=== PATIENT | female | born 1985 | race Caucasian/White ===

== ENCOUNTER 2019-04-06 06:04 | Day surgery (SDC) | payer BC ==
[~2019-04-06 06:04] MED LIST: Albuterol 0.083% 2.5 MG/3 ML Neb Soln NEB ONE; Albuterol 0.083% 2.5 MG/3 ML Neb Soln NEB SCH; Lidocaine 1%/Sod Bicarbonate in NS 8.4% 1 ML Syringe IDERM PRN; Sodium Chloride 0.9% 10 ML Syringe FLUSH PRN
[2019-04-06] MEDS ORDERED: Bupivacaine 0.25% 10 ML SDV ONE (06:48)
--- NOTE | 2019-04-06 06:56 | PCM.PREANE ---
Preanesthetic Assessment - Anesthesia/Transfusion/Family Hx Anesthesia History: Prior Anesthesia Without Reaction Family History of Anesthesia Reaction: No Transfusion History: No Prior Transfusion(s) - Review of Systems General: No Symptoms Pulmonary: No Symptoms Cardiovascular: No Symptoms Gastrointestinal: No Symptoms Neurological: No Symptoms Other: Reports: Diabetes (gluco check 191) - Physical Assessment NPO Status Date: 04/05/19 NPO Status Time: 00:00 Vital Signs: Last Vital Signs Temp 36.4 C 04/06/19 06:10 Pulse 78 04/06/19 06:10 Resp 16 04/06/19 06:10 BP 117/94 H 04/06/19 06:10 Pulse Ox 96 04/06/19 06:10 Height: 1.7 m Weight: 110.404 kg ASA Class: 2 Mental Status: Alert & Oriented x3 Airway Class: Mallampati = 2 Dentition: Reports: Normal Dentition Thyro-Mental Finger Breadths: 3 Mouth Opening Finger Breadths: 3 ROM/Head Extension: Full Lungs: Clear to Auscultation, Normal Respiratory Effort Cardiovascular: Regular Rate, Regular Rhythm - Lab Values: Laboratory Last Values POC Glucose 191 mg/dL (70-105) H 04/06/19 06:21 - Allergies Allergies/Adverse Reactions: Allergies Allergy/AdvReac Type Severity Reaction Status Date / Time tramadol Allergy Seizure Verified 04/05/19 12:43 - Blood Blood Available: No Product(s) Available: None - Anesthesia Plan Pre-Op Medication Ordered: None - Acknowledgements Anesthesia Type Planned: Spinal Pt an Appropriate Candidate for the Planned Anesthesia: Yes Alternatives and Risks of Anesthesia Discussed w Pt/Guardian: Yes Pt/Guardian Understands and Agrees with Anesthesia Plan: Yes PreAnesthesia Questionnaire HEENT History: Reports: Other (See Below) Other HEENT History: right middle ear effusion Cardiovascular History: Reports: None Respiratory History: Reports: Asthma Gastrointestinal History: Reports: Hemorrhoids Genitourinary History: Reports: None QC CHEMIST History: Reports: Endometriosis, Other (See Below) Other OB/BYN History: post menopausal, vaginal atrophy Musculoskeletal History: Reports: Other (See Below) Other Musculoskeletal History: bilateral trochanteric bursitis Neurological History: Reports: Cerebral Aneurysms (2003), Migraines, Neuropathy , Diabetic, Seizure Other Neuro History: CVD Psychiatric History: Reports: None Endocrine/Metabolic History: Reports: Diabetes, Type II, Obesity/BMI 30+ Hematologic History: Reports: None Immunologic History: Reports: None Oncologic (Cancer) History: Reports: None Dermatologic History: Reports: Other (See Below) Other Dermatologic History: dysplastic nevi of trunk, skin rash, skin lesion to scalp - Past Surgical History Head Surgeries/Procedures: Reports: None HEENT Surgical History: Reports: None Cardiovascular Surgical History: Reports: None Respiratory Surgical History: Reports: None GI Surgical History: Reports: Cholecystectomy Female Surgical History: Reports: Hysterectomy Male Surgical History: Reports: None Endocrine Surgical History: Reports: None Neurological Surgical History: Reports: None Musculoskeletal Surgical History: Reports: None Oncologic Surgical History: Reports: None Dermatological Surgical History: Reports: None - SUBSTANCE USE Smoking Status *Q: Current Every Day Smoker Recreational Drug Use History: No - HOME MEDS Home Medications: Home Meds Acetaminophen [Tylenol] 650 mg PO Q4H PRN 04/05/19 [History] Albuterol [Proventil HFA] 1 - 2 puff INH Q4H PRN 04/05/19 [History] Budesonide/Formoterol [Symbicort 160-4.5 MCG] 2 puff INH DAILY PRN 04/05/19 [ History] Estrogens, Conjugated [Premarin Vaginal Crm] 2 - 3 dose VAG Q96H PRN 04/05/19 [ History] Hydrocortisone [Preparation H] 1 dose TOP ASDIRECTED 04/05/19 [History] Liraglutide [Victoza] 1.2 ml SQ QAM 04/05/19 [History] metFORMIN HCl [Metformin HCl ER] 1,000 mg PO QPM 04/05/19 [History] Acetaminophen/HYDROcodone [[place] 325-5 MG] 1 - 2 tab PO Q6H PRN #40 tablet 04/06 [Rx] Aspirin 325 mg PO BID #84 tab 04/06/19 [Rx] Cyclobenzaprine [Flexeril] 10 mg PO Q8H PRN #40 tab 04/06/19 [Rx] - CURRENT (IN HOUSE) MEDS Current Meds: Current Medications Albuterol (Proventil Neb Soln) 2.5 mg NEB ONETIME YAMILKA Stop: 04/06/19 16:00 Epinephrine HCl (Adrenalin) 3 mg .XX ONETIME YAMILKA Stop: 04/06/19 23:00 Lactated Ringer's (Ringers, Lactated) 1,000 mls @ 125 mls/hr IV ASDIRECTED YAMILKA Lidocaine/Sodium Bicarbonate (Buffered Lidocaine 1% In Ns 8.4%) 0.25 ml IDERM ONETIME PRN PRN Reason: Prior to IV Start Sodium Chloride (Saline Flush) 10 ml FLUSH ASDIRECTED PRN PRN Reason: Keep Vein Open Discontinued Medications Albuterol (Proventil Neb Soln) 2.5 mg NEB ONETIME ONE Stop: 04/06/19 00:02 Albuterol (Proventil Neb Soln) 2.5 mg NEB ONETIME YAMILKA Stop: 04/06/19 16:00 Bupivacaine HCl (Sensorcaine-Mpf 0.25%) Confirm Administered Dose 30 ml .ROUTE .STK-MED ONE Stop: 04/06/19 06:49
[2019-04-06] MEDS ORDERED: EPINEPHrine 1 MG/ML 30 ML MDV SCH ×3 (07:00→07:30)
[2019-04-06] MEDS ORDERED: Propofol 200 MG/20 ML SDV ONE ×8 (07:01→09:44)
[2019-04-06] MEDS ORDERED: fentaNYL 100 MCG/2 ML SDV ONE ×2 (07:01→09:49)
[2019-04-06] MEDS ORDERED: Ondansetron 4 MG/2 ML SDV ONE (07:01)
[2019-04-06] MEDS ORDERED: Lidocaine 1% 4 ML ONE (07:02)
[2019-04-06] MEDS ORDERED: Midazolam 1 MG/ML 2 ML SDV ONE (07:02)
[2019-04-06] MEDS ORDERED: ceFAZolin 1 GM Vial ONE (07:04)
[2019-04-06] MEDS: Lactated Ringers 1,000 ML IV SCH ×2 (07:05→11:47)
[2019-04-06] MEDS ORDERED: ePHEDrine/Normal Saline 25 MG/5 ML Syringe ONE ×2 (07:43→08:05)
[2019-04-06] MEDS ORDERED: Lactated Ringers 1,000 ML ONE (07:49)
[2019-04-06] MEDS ORDERED: fentaNYL 100 MCG/2 ML SDV IVPUSH PRN (10:17)
[2019-04-06] MEDS ORDERED: Ketorolac 30 MG/ML SDV IVPUSH PRN (10:17)
[2019-04-06] MEDS ORDERED: HYDROmorphone 0.5 MG/0.5 ML Syringe IVPUSH PRN (10:17)
--- NOTE | 2019-04-06 10:19 | PCM.POSTAN ---
POST ANESTHESIA ASSESSMENT - MENTAL STATUS Mental Status: Alert, Oriented - VITAL SIGNS Vital Signs: Last Vital Signs Temp 36.4 C 04/06/19 06:10 Pulse 78 04/06/19 06:10 Resp 16 04/06/19 06:10 BP 117/94 H 04/06/19 06:10 Pulse Ox 97 04/06/19 07:07 - RESPIRATORY Respiratory Status: Respiratory Rate WNL, Airway Patent, O2 Saturation Stable - CARDIOVASCULAR CV Status: Pulse Rate WNL, Blood Pressure Stable - GASTROINTESTINAL GI Status: No Symptoms - PAIN Pain Score: 0 - POST OP HYDRATION Hydration Status: Adequate & Stable - OBSERVATIONS Free Text/Narrative:: no anesthesia complications noted
--- NOTE | 2019-04-06 10:38 | CR ---
Right hip: Seven fluoroscopic spot views were obtained during arthroscopic surgery within the right hip. Fluoroscopy time is given as 145.9 seconds. Impression: 1. Procedural study as noted above. Diagnostic code #2
[2019-04-06] MEDS ORDERED: Acetaminophen/HYDROcodone 325-5 MG Tab PO PRN (11:01)
[2019-04-06] MEDS ORDERED: Cyclobenzaprine 10 MG Tab PO PRN (11:19)
--- NOTE | 2019-04-06 13:02 | PCM48HPAN ---
Post Anesthesia Note - EVALUATION WITHIN 48HRS OF ANESTHETIC Vital Signs in Normal Range: Yes Patient Participated in Evaluation: Yes Respiratory Function Stable: Yes Airway Patent: Yes Cardiovascular Function Stable: Yes Hydration Status Stable: Yes Pain Control Satisfactory: Yes Nausea and Vomiting Control Satisfactory: Yes Mental Status Recovered: Yes Vital Signs: Last Vital Signs Temp 36.7 C 04/06/19 11:40 Pulse 72 04/06/19 11:40 Resp 16 04/06/19 11:40 BP 114/60 04/06/19 11:40 Pulse Ox 95 04/06/19 11:40 - COMMENTS/OBSERVATIONS Free Text/Narrative:: no anesthesia complications noted
--- NOTE | 2019-04-10 07:12 | PCM.OPNOTE ---
- General Post-Op/Procedure Note Date of Surgery/Procedure: 04/06/19 Operative Procedure(s): right hip video arthroscopy with labral repair and acetabuloplasty Pre Op Diagnosis: right hip femoroacetabular impingement with labral tear Post-Op Diagnosis: Same Anesthesia Technique: Local, MAC, Spinal Primary Surgeon: Juan Shah Anesthesia Provider: Dick Ward Automatic Pinsetter Mechanic: Delisa Paz EBL in mLs: 5 Complications: None Condition: Good
--- NOTE | 2019-04-10 08:27 | OR ---
DATE OF OPERATION: 04/06/2019 SURGEON: Juan Shah MD OPERATION PERFORMED: Right hip video arthroscopy with labral repair and acetabuloplasty. PREOPERATIVE DIAGNOSIS: Right hip femoroacetabular impingement with labral tear. POSTOPERATIVE DIAGNOSIS: Right hip femoroacetabular impingement with labral tear. ANESTHESIA: Local MAC with spinal. ANESTHESIA PROVIDER: Dick Ward CRNA. SUPERVISOR DENTURE DEPARTMENT: Delisa Paz PA-C. ESTIMATED BLOOD LOSS: 5 mL. COMPLICATIONS: None. CONDITION: Stable. DESCRIPTION OF PROCEDURE: The patient was identified in the preoperative holding area, where proper site was marked and identified by the surgeon. The patient was taken back to the operating theater, where after adequate anesthesia, the patient was placed on the traction table. The left lower extremity was placed in a traction boot, was well padded, and was placed in a dependent position with no gross traction. Right lower extremity was placed in a traction boot and was well padded and then had gross traction applied. At this time, right hip was then sterilely prepped and draped in the usual sterile fashion. OR time-out was performed. The patient received 2 g of IV Ancef. Under direct C-arm fluoroscopy, I was able to tamia the starting point and then 7 turns of fine traction were applied until the right hip joint had opened up significantly. A spinal needle was then used to establish the lateral portal, it was found to be in good position. Under direct C-arm fluoroscopy, an accessory anterolateral portal was created and was found to be in adequate position. At this time, skin incisions were made for the portals and the trocars were introduced. Cursory examination showed an area of the anterior and lateral acetabulum with cartilage delamination and labral tear that was well defined where the impingement was happening. On C-arm fluoroscopy, both preoperatively and intraoperatively, we noted that there was really no CAM lesion whatsoever so we could turn our attention to the acetabulum. Part of the synovium was then resected from the anterior portion of the acetabulum, and I was able to visualize the entire rim of the anterior and way to the lateral acetabular wall. Using a full radius bur, I was able to leobardo back under direct visualization roughly 7 to 8 mm of anterior and lateral acetabular wall, right where the cartilage delamination was and where the area of impingement was. At this time, starting anteriorly, [employer] curved knotless anchors for the labrum were utilized, and the 4 were placed starting anteriorly and then working out laterally. It was noted to have good scientologist of the labrum. The cartilage delamination was still there, but was significantly tensioned more than preoperatively. It was found to have good tight fixation of the labrum throughout with anatomic scientologist. Direct C-arm fluoroscopy was utilized during the entirety of the procedure. Further resection of the acetabulum as well. Taking the hip through range of motion, it was noted to have no significant impingement. At this time, secondary to the capsulotomy only being performed in the medial-lateral direction, capsular repair was not undertaken and there was no need for femoroplasty as the patient had no significant CAM lesion. Excess saline was drained from the hip. 3-0 nylon sutures were used for closure of the skin. The patient tolerated the procedure well and was sent to PACU in stable condition. OMAR /[id number]
== END 2019-04-06 13:25 | disposition home or self-care (01) ==
LOC: JD.SDS 06:04
PROVIDERS: ATTEND Orthopaedic Surgery
DX: M25.851 Other specified joint disorders, right hip (principal); S73.191A Other sprain of right hip, initial encounter; I10 Essential (primary) hypertension; E11.40 Type 2 diabetes mellitus with diabetic neuropathy, unspecified; E11.21 Type 2 diabetes mellitus with diabetic nephropathy; E66.8 Other obesity; J45.909 Unspecified asthma, uncomplicated; F17.210 Nicotine dependence, cigarettes, uncomplicated; G43.909 Migraine, unspecified, not intractable, without status migrainosus; G40.909 Epilepsy, unspecified, not intractable, without status epilepticus; X58.XXXA Exposure to other specified factors, initial encounter; Z88.5 Allergy status to narcotic agent; Z68.38 Body mass index [BMI] 38.0-38.9, adult; Z79.4 Long term (current) use of insulin; Z79.899 Other long term (current) drug therapy
CPT/HCPCS: 29915; 76000; 82962; 94640; A9270; J0171; J0690; J1885; J2001; J2250; J2405; J2704; J3010; J3490; J7050; J7120; 01202; C1776